=== PATIENT | male | born 2000 | race Caucasian/White ===

== ENCOUNTER 2018-08-18 14:01 | Emergency (ER) | payer SELFPAY ==
[~2018-08-18] VITALS: Ht 170.2 cm; Wt 65.0 kg
[2018-08-18] MEDS ORDERED: SODIUM CHLORIDE 0.9% 1,000 ML IV ONE (14:43)
[2018-08-18] MEDS ORDERED: KETOROLAC 30MG/ML VIAL IV STA (14:43)
[2018-08-18] MEDS ORDERED: BACITRACIN ZINC OINT UDPKT TOP ONE (14:45)
[2018-08-18] MEDS ORDERED: LIDOCAINE 1%/EPI 1:100,000 10 ML VIAL IJ ONE (14:45)
[2018-08-18] MEDS ORDERED: TETANUS, DIPHTHERIA, PERTUSSIS VAC/PF 0.5ML (>7YR OLD) IM ONE (14:45)
[2018-08-18] MEDS ORDERED: LIDOCAINE HCL/EPINEPHRINE 1%-EPI 1:100,000 20 ML VIAL INFIL ONE (15:15)
[2018-08-18 15:44] LABS: BASOPHILS % 0.2 % (0.0-2.0); EOSINOPHILS % 0.3 % (0.0-5.0); HEMATOCRIT. 39.5 % (42.0-52.0); HEMOGLOBIN. 13.5 g/dL (14.0-18.0); LYMPHOCYTES % 7.8 % (20.0-50.0); MEAN CORPUSCULAR HEMOGLOBIN 30.8 pg (28.0-32.0); MEAN CORPUSCULAR VOLUME 90.4 fL (80.0-94.0); MEAN PLATELET VOLUME 9.8 fl (7.4-10.4); MONOCYTES % 6.6 % (2.0-8.0); NEUTROPHILS % 85.1 % (40.0-76.0); PLATELET 205 x1000/uL (130-400); RED BLOOD CELL COUNT 4.36 mill/uL (4.7-6.1); RED CELL DISTRIBUTION WIDTH 13.7 % (11.6-14.6)
[2018-08-18 16:01] LABS: CHLORIDE 101 mEq/L (98-107)
[2018-08-18 16:29] VITALS: BP 121/68
== END 2018-08-18 16:31 | disposition home or self-care (01) ==
LOC: ER 14:01
DX: S01.01XA Laceration without foreign body of scalp, initial encounter (principal); R55 Syncope and collapse; W22.8XXA Striking against or struck by other objects, initial encounter; Y93.89 Activity, other specified; Y92.89 Other specified places as the place of occurrence of the external cause; Y99.8 Other external cause status
CPT/HCPCS: 12002; 36415; 70450; 80053; 85025; 93005; 96361; 96374; 99284; J1885; J3490; J7030; 90715